=== PATIENT | male | born 1955 | race Caucasian/White ===

== ENCOUNTER → 2017-01-14 | Outpatient (CLI) | payer OTHER ==
[2017-01-14 07:55] LABS: HEMOGLOBIN 14.4 gm/dl (14.0-17.5); RED BLOOD COUNT 4.13 M/UL (4.20-5.50); WHITE BLOOD COUNT 3.9 K/UL (4.5-11.0)
[2017-01-14 08:14] LABS: BUN/CREATININE RATIO 14 (0-10)
== END ==
LOC: OPSV 06:25
PROVIDERS: Internal Medicine Gastroenterology
DX: K52.9 Noninfective gastroenteritis and colitis, unspecified (principal)
CPT/HCPCS: 36415; 80053; 83520; 85027; 86704; 86709; 87340; 96375; 96413; 96415; J1720; J1745; Q0163

== ENCOUNTER → 2017-03-12 | Outpatient (CLI) | payer OTHER | LOC: OPSV 03-11 08:00 | DX: K50.10 Crohn's disease of large intestine without complications (principal) | CPT/HCPCS: 96375; 96413; 96415; J1720; J1745; Q0163 ==

== ENCOUNTER → 2020-10-30 | Outpatient (CLI) | payer MEDICARE, BC | LOC: OPSV 10-29 08:00 | DX: K50.10 Crohn's disease of large intestine without complications (principal) | CPT/HCPCS: 96365; 96366; 96375; 96413; 96415; J1720; J1745; J7050 ==

== ENCOUNTER → 2020-12-10 | Outpatient (CLI) | payer MEDICARE, BC ==
[~2020-12-10] VITALS: Ht 185.4 cm; Wt 88.5 kg
== END ==
LOC: OPSV 07:22
DX: K50.10 Crohn's disease of large intestine without complications (principal)
CPT/HCPCS: 96365; 96366; 96375; 96413; 96415; J1720; J1745; J7050

== ENCOUNTER → 2021-01-21 | Outpatient (CLI) | payer MEDICARE, BC ==
[~2021-01-21] VITALS: Ht 185.4 cm; Wt 89.8 kg
== END ==
LOC: OPSV 07:00
DX: K50.10 Crohn's disease of large intestine without complications (principal)
CPT/HCPCS: 96365; 96366; 96375; 96413; 96415; J1720; J1745; J7050

== ENCOUNTER → 2021-03-04 | Outpatient (CLI) | payer MEDICARE, BC ==
[~2021-03-04] VITALS: Ht 185.4 cm; Wt 88.5 kg
== END ==
LOC: OPSV 07:06
DX: K50.10 Crohn's disease of large intestine without complications (principal)
CPT/HCPCS: 96374; 96375; 96413; 96415; J1720; J1745; J7030

== ENCOUNTER → 2021-04-16 | Outpatient (CLI) | payer MEDICARE, BC ==
[~2021-04-16] VITALS: Ht 185.4 cm; Wt 88.5 kg
== END ==
LOC: OPSV 07:00
DX: K50.10 Crohn's disease of large intestine without complications (principal)
CPT/HCPCS: 96375; 96413; 96415; J1720; J1745; J7050

== ENCOUNTER → 2021-05-28 | Outpatient (CLI) | payer MEDICARE, BC ==
[~2021-05-28] VITALS: Ht 185.4 cm; Wt 88.5 kg
== END ==
LOC: OPSV 06:54
DX: K50.10 Crohn's disease of large intestine without complications (principal)
CPT/HCPCS: 96375; 96413; 96415; J1720; J1745; J7050

== ENCOUNTER → 2021-07-09 | Outpatient (CLI) | payer MEDICARE, BC ==
[~2021-07-09] VITALS: Ht 185.4 cm; Wt 88.5 kg
== END ==
LOC: OPSV 07:00
DX: K50.10 Crohn's disease of large intestine without complications (principal)
CPT/HCPCS: 96375; 96413; 96415; J1720; J1745; J7050